=== PATIENT | female | born 1985 | race Hispanic/Latino ===

== ENCOUNTER 2016-07-28 10:03 | Outpatient (CLI) | payer OTHER ==
[2016-07-28 10:30] LABS: Urine Drugs of Abuse Note Disclamer
== END 2016-07-28 10:04 | disposition home or self-care (01) ==
LOC: LAB 10:03
PROVIDERS: ATTEND Psychiatry & Neurology Psychiatry
DX: F11.20 Opioid dependence, uncomplicated (principal)
CPT/HCPCS: 80307

== ENCOUNTER 2016-08-18 09:01 | Outpatient (CLI) | payer OTHER | END 2016-08-18 09:02 | disposition home or self-care (01) | LOC: LAB 09:01 | PROVIDERS: ATTEND Clinical Nurse Specialist Psychiatric/Mental Health | DX: F11.20 Opioid dependence, uncomplicated (principal) | CPT/HCPCS: 36415; 86592 ==